=== PATIENT | male | born 1965 | race Caucasian/White ===

== ENCOUNTER 2021-02-20 11:11 | Outpatient (REF) | payer OTHER, SELFPAY ==
[2021-02-20 14:17] LABS: SARS COV2 PCR INHOUSE NEGATIVE (Negative)
== END 2021-02-20 11:12 | disposition home or self-care (01) ==
LOC: HO.LAB 11:11
PROVIDERS: Visit Provider Internal Medicine
DX: Z20.822 Contact with and (suspected) exposure to COVID-19 (principal)
CPT/HCPCS: C9803; U0003